=== PATIENT | male | born 1970 | race Caucasian/White ===

== ENCOUNTER 2023-11-04 11:24 | Inpatient (IN) ==
[2023-11-04 13:02] LABS: ABS Eosinophils 0.1 10^3/uL (0.0-0.5); ABS Lymphocytes 0.5 10^3/uL (1.0-4.8); ABS Monocytes 0.4 10^3/uL (0.0-1.1); ABS Neutrophils 5.1 10^3/uL (1.5-7.6); ABS Nucleated RBC 0.01 10^3/ul; Eosinophil % 1.4 %; Hematocrit 39.2 % (38-53); Hemoglobin 12.3 g/dL (13.2-16.3); Lymphocyte % 8.9 %; Mean Corpuscular Hemoglobin 30.3 pg (27-33); Mean Corpuscular Hgb Conc 31.4 g/dL (31-36); Mean Corpuscular Volume 96.6 fL (80-97); Nucleated Red Blood Cells % 0.1 %/100WBC (0.0-0.8); Platelet Count 202 10^3/uL (150-450); Red Blood Count 4.06 10^6/uL (4.06-5.63); Red Cell Distribution Width 17.3 % (12-17); White Blood Count 6.1 10^3/uL (3.6-10.2)
[2023-11-04 13:33] LABS: Albumin 2.9 g/dL (3.2-5.2); Albumin/Globulin Ratio 0.7 (1-3); Calcium 7.4 mg/dL (8.6-10.3); Creatinine, Serum 5.13 mg/dL (0.67-1.17); Globulin 4.4 g/dL (2-4); Magnesium 2.1 mg/dL (1.9-2.7); Phosphorus 6.9 mg/dL (2.5-5.0); Total Bilirubin 1.1 mg/dL (0.2-1.0); Total Protein 7.3 g/dL (6.4-8.9); eGFR CKD-EPI 12.7 (>60)
[2023-11-04] MEDS ORDERED: Dextrose 50% Syringe 50 ml 25 GM/50 ML SYRINGE IV PUSH PRN (14:55)
[2023-11-04] MEDS ORDERED: NS 0.9% 1000 ml BAG 100 ML IV PRN (14:59)
[2023-11-04] MEDS ORDERED: NS 0.9% 1000 ml BAG 200 ML IV PRN (14:59)
[2023-11-04] MEDS ORDERED: Albumin Human 25% 25 GM/100 ML BTL IV PRN (14:59)
[2023-11-04 17:05] LABS: Hepatitis B Surface Antigen Nonreactive (Nonreactive)
[2023-11-04] MEDS: Heparin 1,000 UNIT/ML 10 ml (10,000 UNITS) CATHLAB/DIALYSIS DIALYSIS PRN (17:20)
[2023-11-04 17:23] LABS: Hepatitis B Surface Ab Immune (Immune)
[2023-11-04] MEDS: Heparin 5000 UNITS/ML 1 mL VIAL SUBCUT SCH (23:33)
[2023-11-05 06:27] LABS: Calcium 6.9 mg/dL (8.6-10.3); Creatinine, Serum 4.02 mg/dL (0.67-1.17); Potassium 4.1 mmol/L (3.5-5.0); eGFR CKD-EPI 16.9 (>60)
[2023-11-07] MEDS: Sulfur Hexaflouride MICROSPHR 25 MG VIAL IV ONE (02:15)
[2023-11-07] MEDS ORDERED: NS 0.9% 1000 ml BAG 100 ML IV PRN (02:26)
[2023-11-07] MEDS ORDERED: NS 0.9% 1000 ml BAG 200 ML IV PRN (02:26)
[2023-11-07] MEDS ORDERED: Albumin Human 25% 25 GM/100 ML BTL IV PRN (02:26)
[2023-11-07 07:55] LABS: Calcium 7.5 mg/dL (8.6-10.3); Creatinine, Serum 4.99 mg/dL (0.67-1.17); Potassium 6.1 mmol/L (3.5-5.0); eGFR CKD-EPI 13.1 (>60)
[2023-11-07] MEDS: Heparin 1,000 UNIT/ML 10 ml (10,000 UNITS) CATHLAB/DIALYSIS DIALYSIS PRN (08:05)
[2023-11-07 15:54] LABS: INR 1.41 (0.83-1.13)
[2023-11-08 16:20] LABS: Calcium 7.8 mg/dL (8.6-10.3); Creatinine, Serum 4.16 mg/dL (0.67-1.17); Potassium 4.8 mmol/L (3.5-5.0); eGFR CKD-EPI 16.3 (>60)
[2023-11-08] MEDS: ceFAZolin 1 GM ADVAN 1 GM ADDV.VIAL IVPB ONE (19:41)
[2023-11-08] MEDS: fentaNYL 250 mcg/5 ml 50 MCG/ML 5 ml VIAL (250 MCG) ONE (19:41)
[2023-11-09 06:24] LABS: Calcium 7.7 mg/dL (8.6-10.3); Creatinine, Serum 4.44 mg/dL (0.67-1.17); Potassium 5.5 mmol/L (3.5-5.0)
[2023-11-09] MEDS: Heparin 1,000 UNIT/ML 10 ml (10,000 UNITS) CATHLAB/DIALYSIS DIALYSIS PRN (09:04)
[2023-11-09 13:50] VITALS: BP 126/85
== END 2023-11-09 14:30 | disposition home or self-care (01) | DRG 291 ==
LOC: ED 11:24 → SUATTDRO 14:34 → EDHOLD 14:34 → MED 15:43
PROVIDERS: ADMIT Student in an Organized Health Care Education/Training Program; ATTEND Internal Medicine

== ENCOUNTER 2023-11-25 08:21 | Inpatient (IN) ==
[2023-11-25 09:07] LABS: ABS Eosinophils 0.1 10^3/uL (0.0-0.5); ABS Lymphocytes 0.7 10^3/uL (1.0-4.8); ABS Monocytes 0.6 10^3/uL (0.0-1.1); ABS Nucleated RBC 0.01 10^3/ul; Eosinophil % 1.1 %; Hematocrit 39.3 % (38-53); Hemoglobin 12.6 g/dL (13.2-16.3); Lymphocyte % 10.9 %; Mean Corpuscular Hgb Conc 32.1 g/dL (31-36); Mean Corpuscular Volume 96.5 fL (80-97); Mean Platelet Volume 8.6 fL (7.5-11.2); Nucleated Red Blood Cells % 0.1 %/100WBC (0.0-0.8); Platelet Count 273 10^3/uL (150-450); Red Blood Count 4.07 10^6/uL (4.06-5.63); Red Cell Distribution Width 17.1 % (12-17); White Blood Count 6.4 10^3/uL (3.6-10.2)
[2023-11-25] MEDS: Dextrose 50% Syringe 50 ml 25 GM/50 ML SYRINGE IV PUSH ONE (09:07)
[2023-11-25 09:39] LABS: Albumin 2.7 g/dL (3.2-5.2); Albumin/Globulin Ratio 0.6 (1-3); C Reactive Protein 96.75 mg/L (<8.01); Calcium 7.9 mg/dL (8.6-10.3); Creatinine, Serum 2.67 mg/dL (0.67-1.17); Globulin 4.3 g/dL (2-4); Potassium 4.5 mmol/L (3.5-5.0); Total Bilirubin 1.2 mg/dL (0.2-1.0); eGFR CKD-EPI 27.7 (>60)
[2023-11-25] MEDS: Cefepime 1 GM in Dextrose 1 GM/50 ML BAG IV ONE (13:21)
[2023-11-25] MEDS: Iodixanol (CONTRAST) 320 MG/ML 100 ML SDV IV ONE (14:15)
[2023-11-25] MEDS: Vancomycin 1,250 MG in NS 0.9% 250 ml 250 ML IVPB ONE (14:37)
[2023-11-25 18:06] LABS: PCO2 Arterial 40 mmHg (35-45); PO2 Arterial 79 mmHg (80-100)
[2023-11-25] MEDS ORDERED: Albumin Human 25% 25 GM/100 ML BTL IV PRN (21:12)
[2023-11-25] MEDS ORDERED: NS 0.9% 1000 ml BAG 200 ML IV PRN (21:12)
[2023-11-25] MEDS ORDERED: NS 0.9% 1000 ml BAG 100 ML IV PRN (21:12)
[2023-11-25] MEDS ORDERED: SODIUM THIOSULFATE 12.5 GM IV SCH ×2 (22:00)
[2023-11-25] MEDS: Heparin 5000 UNITS/ML 1 mL VIAL SUBCUT SCH (22:32)
[2023-11-25 23:09] LABS: Hepatitis B Surface Antigen Nonreactive (Nonreactive)
[2023-11-26] MEDS: HYDROmorphone 0.5 MG/0.5 ML SYRINGE IV SLOW PU ONE (05:38)
[2023-11-26] MEDS: Heparin 1,000 UNIT/ML 10 ml (10,000 UNITS) CATHLAB/DIALYSIS DIALYSIS PRN (08:01)
[2023-11-26] MEDS: Neomycin/Polym/Bacit TOP OINT 15 GM TOPICAL SCH (09:59)
[2023-11-26] MEDS ORDERED: SODIUM THIOSULFATE 12.5 GM IV SCH (11:00)
[2023-11-26] MEDS: SODIUM THIOSULFATE IV SCH (11:04)
[2023-11-26] MEDS: Aspirin EC 81 mg TAB.EC (enteric coated) PO SCH (13:19)
[2023-11-26] MEDS: Cefepime 1 GM in Dextrose 1 GM/50 ML BAG IV SCH (13:24)
[2023-11-27 01:25] LABS: Hemoglobin 11.2 g/dL (13.2-16.3); Mean Corpuscular Hgb Conc 32.1 g/dL (31-36); Mean Corpuscular Volume 96.5 fL (80-97); Mean Platelet Volume 8.8 fL (7.5-11.2); Platelet Count 241 10^3/uL (150-450); Red Blood Count 3.63 10^6/uL (4.06-5.63); Red Cell Distribution Width 17.5 % (12-17); White Blood Count 6.8 10^3/uL (3.6-10.2)
[2023-11-27 01:48] LABS: Calcium 7.9 mg/dL (8.6-10.3); Creatinine, Serum 2.29 mg/dL (0.67-1.17); eGFR CKD-EPI 33.3 (>60)
[2023-11-28 06:10] LABS: Hematocrit 31.3 % (38-53); Hemoglobin 10.1 g/dL (13.2-16.3); Mean Corpuscular Hemoglobin 31.4 pg (27-33); Mean Corpuscular Hgb Conc 32.4 g/dL (31-36); Mean Corpuscular Volume 97.2 fL (80-97); Mean Platelet Volume 8.9 fL (7.5-11.2); Platelet Count 206 10^3/uL (150-450); Red Blood Count 3.22 10^6/uL (4.06-5.63); Red Cell Distribution Width 17.2 % (12-17); White Blood Count 6.7 10^3/uL (3.6-10.2)
[2023-11-28 06:29] LABS: Calcium 7.7 mg/dL (8.6-10.3); Creatinine, Serum 3.53 mg/dL (0.67-1.17); Potassium 4.7 mmol/L (3.5-5.0); eGFR CKD-EPI 19.8 (>60)
[2023-11-28] MEDS ORDERED: Tetan/Diph/Pertus SYR(Tdap) 0.5 ML SYR(BOOSTRIX) use SYR contains LATEX IM ONE (08:52)
[2023-11-28] MEDS ORDERED: Naloxone 0.4 mg VIAL 0.4 mg/ml 1 ml VIAL IV PUSH PRN (11:39)
[2023-11-28] MEDS ORDERED: Flumazenil 0.5 mg/5 ml 0.1 MG/ML 5 ml VIAL IV PRN (11:39)
[2023-11-28] MEDS ORDERED: Midazolam 5 mg/5 ml VIAL 1 mg/ml 5 ml VIAL (5 mg) ONE ×2 (12:29→12:51)
[2023-11-28] MEDS ORDERED: fentaNYL 100 mcg/2 ml 50 MCG/ML VIAL ONE (12:29)
[2023-11-28] MEDS ORDERED: fentaNYL 250 mcg/5 ml 50 MCG/ML 5 ml VIAL (250 MCG) ONE (12:51)
[2023-11-28] MEDS ORDERED: Iodixanol 320 (CONTRAST) 100 ML SDV ONE (13:01)
[2023-11-28] MEDS ORDERED: Heparin 1,000 UNIT/ML 10 ml (10,000 UNITS) CATHLAB/DIALYSIS ONE (14:06)
[2023-11-28] MEDS ORDERED: nitroGLYCERIN DRIP 25,000 MCG/250 ML BTL ONE (14:22)
[2023-11-28] MEDS ORDERED: Heparin 2 UNITS/ML IVPREMIX 1,000 UNIT/500 ML BAG IV ONE (14:54)
[2023-11-28] MEDS: Midazolam 10 mg/10 ml VIAL 1 mg/ml 10 ml VIAL (10 mg) IV SLOW PU ONE (17:34)
[2023-11-28] MEDS: fentaNYL 100 mcg/2 ml 50 MCG/ML VIAL IV SLOW PU ONE (17:34)
[2023-11-29 06:18] LABS: Hematocrit 32.2 % (38-53); Hemoglobin 10.5 g/dL (13.2-16.3); Mean Corpuscular Hemoglobin 31.7 pg (27-33); Mean Corpuscular Hgb Conc 32.7 g/dL (31-36); Platelet Count 206 10^3/uL (150-450); Red Blood Count 3.32 10^6/uL (4.06-5.63); Red Cell Distribution Width 17.5 % (12-17); White Blood Count 5.9 10^3/uL (3.6-10.2)
[2023-11-29 06:56] LABS: Calcium 7.3 mg/dL (8.6-10.3); Creatinine, Serum 4.13 mg/dL (0.67-1.17); Potassium 4.9 mmol/L (3.5-5.0); eGFR CKD-EPI 16.4 (>60)
[2023-11-29] MEDS ORDERED: Pramoxine/Zinc Oxide CREAM 30 GM PR PRN (08:29)
[2023-11-29] MEDS: Calamine/Pramoxine LOTION 8%/1% 180 ML TOPICAL SCH (12:12)
[2023-11-29] MEDS: Tetan/Diph/Pertus SYR(Tdap) 0.5 ML SYR(BOOSTRIX) use SYR contains LATEX IM ONE (13:43)
[2023-11-29] MEDS ORDERED: Magnesium Hydroxide LIQ 30 ML UDC PO PRN (15:51)
[2023-11-29] MEDS ORDERED: Senna TAB 8.6 mg TAB PO PRN (15:51)
[2023-11-29] MEDS ORDERED: Polyethylene Glycol 3350 17 GM PACKET PO PRN (15:51)
[2023-11-29] MEDS: Cefepime 1 GM in Dextrose 1 GM/50 ML BAG IV SCH (16:53)
[2023-11-30 05:21] LABS: Hematocrit 34.7 % (38-53); Hemoglobin 11.1 g/dL (13.2-16.3); Mean Corpuscular Hgb Conc 32.1 g/dL (31-36); Mean Corpuscular Volume 96.5 fL (80-97); Mean Platelet Volume 9.1 fL (7.5-11.2); Platelet Count 237 10^3/uL (150-450); Red Blood Count 3.59 10^6/uL (4.06-5.63); Red Cell Distribution Width 17.3 % (12-17); White Blood Count 5.4 10^3/uL (3.6-10.2)
[2023-11-30 05:38] LABS: Calcium 7.1 mg/dL (8.6-10.3); Creatinine, Serum 2.92 mg/dL (0.67-1.17); Potassium 4.3 mmol/L (3.5-5.0); eGFR CKD-EPI 24.9 (>60)
[2023-11-30 10:00] VITALS: BP 112/73
[2023-11-30] MEDS: TACROLIMUS 0.03% TOPICAL SCH (12:03)
== END 2023-11-30 14:29 | disposition home health service (06) | DRG 252 ==
LOC: ED 08:21 → EDHOLD 08:21 → MEDTELE 20:31 → SUATTDRO 11-27 15:04
PROVIDERS: ADMIT Internal Medicine; ATTEND Internal Medicine

== ENCOUNTER 2023-12-28 20:50 | Inpatient (IN) ==
[2023-12-28 21:15] LABS: PCO2 Arterial 25 mmHg (35-45); PO2 Arterial 296 mmHg (80-100)
[2023-12-28 21:15] LABS: ABS Lymphocytes 0.1 10^3/uL (1.0-4.8); ABS Nucleated RBC 0.01 10^3/ul; Eosinophil % 0.6 %; Hematocrit 33.4 % (38-53); Hemoglobin 10.9 g/dL (13.2-16.3); Lymphocyte % 2.1 %; Mean Corpuscular Hemoglobin 31.1 pg (27-33); Mean Corpuscular Hgb Conc 32.6 g/dL (31-36); Mean Corpuscular Volume 95.2 fL (80-97); Mean Platelet Volume 8.6 fL (7.5-11.2); Nucleated Red Blood Cells % 0.1 %/100WBC (0.0-0.8); Platelet Count 204 10^3/uL (150-450); Red Cell Distribution Width 16.8 % (12-17); White Blood Count 5.2 10^3/uL (3.6-10.2)
[2023-12-28] MEDS: Cefepime 1 GM in Dextrose 1 GM/50 ML BAG IV ONE (21:16)
[2023-12-28 21:23] LABS: Activated Partial Thrombo Time 34.9 seconds (26.0-38.0); INR 1.23 (0.85-1.14)
[2023-12-28 21:53] LABS: Albumin 2.9 g/dL (3.2-5.2); Albumin/Globulin Ratio 0.7 (1-3); C Reactive Protein 105.76 mg/L (<8.01); Calcium 7.4 mg/dL (8.6-10.3); Creatinine, Serum 3.53 mg/dL (0.67-1.17); Globulin 4.2 g/dL (2-4); Potassium 4.8 mmol/L (3.5-5.0); Total Bilirubin 0.8 mg/dL (0.2-1.0); Total Protein 7.1 g/dL (6.4-8.9); eGFR CKD-EPI 19.8 (>60)
[2023-12-28 22:58] LABS: High Sensitivity Troponin 1 Hr 68 pg/mL (<20)
[2023-12-28] MEDS: Vancomycin 1,500 MG in NS 0.9% 250 ml 250 ML IVPB ONE (23:28)
[2023-12-28] MEDS: Vancomycin 1,000 MG - ED ONCE IVPB ONE (23:40)
[2023-12-29] MEDS ORDERED: Vancomycin per Pharmacy 1 EA NOTE FOLLOW UP SCH (02:00)
[2023-12-29] MEDS ORDERED: Dextrose 50% Syringe 50 ml 25 GM/50 ML SYRINGE IV PUSH PRN (04:09)
[2023-12-29 05:32] LABS: ABS Lymphocytes 0.3 10^3/uL (1.0-4.8); ABS Monocytes 0.3 10^3/uL (0.0-1.1); ABS Neutrophils 9.3 10^3/uL (1.5-7.6); Eosinophil % 0.1 %; Hematocrit 29.5 % (38-53); Hemoglobin 9.8 g/dL (13.2-16.3); Lymphocyte % 3.3 %; Mean Corpuscular Hemoglobin 31.9 pg (27-33); Mean Corpuscular Hgb Conc 33.4 g/dL (31-36); Mean Corpuscular Volume 95.6 fL (80-97); Mean Platelet Volume 8.8 fL (7.5-11.2); Platelet Count 180 10^3/uL (150-450); Red Blood Count 3.08 10^6/uL (4.06-5.63); Red Cell Distribution Width 16.4 % (12-17)
[2023-12-29 06:18] LABS: Albumin 2.7 g/dL (3.2-5.2); Albumin/Globulin Ratio 0.7 (1-3); Calcium 7.4 mg/dL (8.6-10.3); Creatinine, Serum 3.79 mg/dL (0.67-1.17); Globulin 3.9 g/dL (2-4); Magnesium 2.2 mg/dL (1.9-2.7); Potassium 4.2 mmol/L (3.5-5.0); Total Bilirubin 0.6 mg/dL (0.2-1.0); Total Protein 6.6 g/dL (6.4-8.9); eGFR CKD-EPI 18.2 (>60)
[2023-12-29] MEDS: Heparin 5000 UNITS/ML 1 mL VIAL SUBCUT SCH (08:55)
[2023-12-29] MEDS: Aspirin EC 81 mg TAB.EC (enteric coated) PO SCH (08:56)
[2023-12-29] MEDS: Vancomycin Random Level NOTE FOLLOW UP ONE (09:06)
[2023-12-29] MEDS ORDERED: Albumin Human 25% 25 GM/100 ML BTL IV PRN (11:07)
[2023-12-29] MEDS ORDERED: NS 0.9% 1000 ml BAG 200 ML IV PRN (11:07)
[2023-12-29] MEDS ORDERED: NS 0.9% 1000 ml BAG 100 ML IV PRN (11:07)
[2023-12-29 13:43] LABS: Hepatitis B Surface Antigen Nonreactive (Nonreactive)
[2023-12-29 14:01] LABS: Hepatitis B Surface Ab Immune (Immune)
[2023-12-29] MEDS: Heparin 1,000 UNIT/ML 10 ml (10,000 UNITS) CATHLAB/DIALYSIS DIALYSIS PRN (14:34)
[2023-12-29] MEDS ORDERED: SODIUM THIOSULFATE 12.5 GM IV SCH (16:00)
[2023-12-29] MEDS: Sodium Thiosulfate 25 GM in 200 ML IV SCH (17:34)
[2023-12-29] MEDS: CEFEPIME 2 GM in Dextrose 50 mL IV SCH (18:28)
[2023-12-29] MEDS: cefTRIAXone 1 gm/50 mL D5W 1 GM/50 ML BAG IV SCH (18:45)
[2023-12-29] MEDS ORDERED: Vancomycin 500 MG in NS 0.9% 250 ML IVPB ONE (20:00)
[2023-12-29] MEDS: Acetaminophen IV 1 GM/100ML 1,000 MG/100 ML BAG IV ONE (22:08)
[2023-12-29 22:25] LABS: ABS Lymphocytes 0.1 10^3/uL (1.0-4.8); ABS Monocytes 0.1 10^3/uL (0.0-1.1); ABS Neutrophils 8.8 10^3/uL (1.5-7.6); Eosinophil % 0.3 %; Hematocrit 29.2 % (38-53); Hemoglobin 9.8 g/dL (13.2-16.3); Lymphocyte % 1.5 %; Mean Corpuscular Hemoglobin 31.9 pg (27-33); Mean Corpuscular Hgb Conc 33.6 g/dL (31-36); Mean Corpuscular Volume 94.9 fL (80-97); Mean Platelet Volume 8.8 fL (7.5-11.2); Platelet Count 161 10^3/uL (150-450); Red Blood Count 3.07 10^6/uL (4.06-5.63); Red Cell Distribution Width 16.4 % (12-17); White Blood Count 9.1 10^3/uL (3.6-10.2)
[2023-12-29 22:36] LABS: Albumin 2.7 g/dL (3.2-5.2); Albumin/Globulin Ratio 0.7 (1-3); Calcium 7.6 mg/dL (8.6-10.3); Creatinine, Serum 2.47 mg/dL (0.67-1.17); Potassium 4.1 mmol/L (3.5-5.0); Total Bilirubin 0.6 mg/dL (0.2-1.0); Total Protein 6.7 g/dL (6.4-8.9); eGFR CKD-EPI 30.4 (>60)
[2023-12-30 03:53] LABS: Albumin 2.6 g/dL (3.2-5.2); Albumin/Globulin Ratio 0.7 (1-3); Calcium 7.9 mg/dL (8.6-10.3); Creatinine, Serum 2.65 mg/dL (0.67-1.17); Globulin 3.9 g/dL (2-4); Magnesium 1.9 mg/dL (1.9-2.7); Potassium 4.4 mmol/L (3.5-5.0); Total Bilirubin 0.5 mg/dL (0.2-1.0); Total Protein 6.5 g/dL (6.4-8.9); eGFR CKD-EPI 27.9 (>60)
[2023-12-30 04:06] LABS: ABS Lymphocytes 0.4 10^3/uL (1.0-4.8); ABS Monocytes 0.4 10^3/uL (0.0-1.1); ABS Neutrophils 10.1 10^3/uL (1.5-7.6); ABS Nucleated RBC 0.01 10^3/ul; Eosinophil % 0.2 %; Hematocrit 27.9 % (38-53); Hemoglobin 9.3 g/dL (13.2-16.3); Lymphocyte % 4.1 %; Mean Corpuscular Hemoglobin 31.8 pg (27-33); Mean Corpuscular Hgb Conc 33.2 g/dL (31-36); Mean Corpuscular Volume 95.8 fL (80-97); Mean Platelet Volume 9.3 fL (7.5-11.2); Platelet Count 156 10^3/uL (150-450); Red Blood Count 2.91 10^6/uL (4.06-5.63); Red Cell Distribution Width 16.6 % (12-17)
[2023-12-30] MEDS ORDERED: Vancomycin Random Level NOTE FOLLOW UP ONE (06:00)
[2023-12-30] MEDS: Polyethylene Glycol 3350 17 GM PACKET PO SCH (10:30)
[2023-12-30] MEDS: Lidocaine PATCH 5% PATCH TRANSDERM SCH (10:31)
[2023-12-30] MEDS: Magnesium Hydroxide LIQ 30 ML UDC PO PRN (11:29)
[2023-12-30] MEDS: cefTRIAXone 2 gm/50 mL D5W 2 GM/50 ML BAG IV SCH (17:17)
[2023-12-30] MEDS: Senna TAB 8.6 mg TAB PO SCH (21:58)
[2023-12-31 07:09] LABS: ABS Eosinophils 0.3 10^3/uL (0.0-0.5); ABS Lymphocytes 0.9 10^3/uL (1.0-4.8); ABS Monocytes 0.6 10^3/uL (0.0-1.1); Eosinophil % 4.5 %; Hematocrit 27.2 % (38-53); Hemoglobin 9.1 g/dL (13.2-16.3); Lymphocyte % 12.9 %; Mean Corpuscular Hemoglobin 32.1 pg (27-33); Mean Corpuscular Hgb Conc 33.3 g/dL (31-36); Mean Corpuscular Volume 96.2 fL (80-97); Mean Platelet Volume 9.6 fL (7.5-11.2); Nucleated Red Blood Cells % 0.1 %/100WBC (0.0-0.8); Platelet Count 151 10^3/uL (150-450); Red Blood Count 2.82 10^6/uL (4.06-5.63); Red Cell Distribution Width 16.6 % (12-17); White Blood Count 6.7 10^3/uL (3.6-10.2)
[2023-12-31 07:32] LABS: Albumin 2.5 g/dL (3.2-5.2); Albumin/Globulin Ratio 0.7 (1-3); Calcium 7.7 mg/dL (8.6-10.3); Creatinine, Serum 3.43 mg/dL (0.67-1.17); Globulin 3.7 g/dL (2-4); Magnesium 2.3 mg/dL (1.9-2.7); Potassium 4.5 mmol/L (3.5-5.0); Total Bilirubin 0.5 mg/dL (0.2-1.0); Total Protein 6.2 g/dL (6.4-8.9); eGFR CKD-EPI 20.5 (>60)
[2023-12-31] MEDS: Influenza Vaccine *TRI* 2024-25* 0.5 ML SYRINGE IM ONE (08:29)
[2023-12-31] MEDS: Ondansetron 4 mg VIAL 2 MG/ML 2 ml VIAL IV PRN (22:46)
[2024-01-01 08:44] LABS: ABS Eosinophils 0.2 10^3/uL (0.0-0.5); ABS Lymphocytes 0.2 10^3/uL (1.0-4.8); ABS Monocytes 0.1 10^3/uL (0.0-1.1); ABS Neutrophils 8.5 10^3/uL (1.5-7.6); ABS Nucleated RBC 0.01 10^3/ul; Eosinophil % 1.8 %; Hematocrit 29.3 % (38-53); Hemoglobin 9.8 g/dL (13.2-16.3); Lymphocyte % 2.3 %; Mean Corpuscular Hemoglobin 32.1 pg (27-33); Mean Corpuscular Hgb Conc 33.5 g/dL (31-36); Mean Corpuscular Volume 95.7 fL (80-97); Mean Platelet Volume 9.5 fL (7.5-11.2); Nucleated Red Blood Cells % 0.1 %/100WBC (0.0-0.8); Platelet Count 161 10^3/uL (150-450); Red Blood Count 3.06 10^6/uL (4.06-5.63); Red Cell Distribution Width 16.9 % (12-17)
[2024-01-01 09:40] LABS: Albumin 2.6 g/dL (3.2-5.2); Albumin/Globulin Ratio 0.7 (1-3); Calcium 8.6 mg/dL (8.6-10.3); Creatinine, Serum 4.15 mg/dL (0.67-1.17); Globulin 3.9 g/dL (2-4); Magnesium 2.6 mg/dL (1.9-2.7); Potassium 5.1 mmol/L (3.5-5.0); Total Bilirubin 0.5 mg/dL (0.2-1.0); Total Protein 6.5 g/dL (6.4-8.9); eGFR CKD-EPI 16.3 (>60)
[2024-01-02] MEDS: Morphine 2 MG/ML SYRINGE IV ONE (00:39)
[2024-01-03 05:26] LABS: ABS Eosinophils 0.2 10^3/uL (0.0-0.5); ABS Monocytes 0.5 10^3/uL (0.0-1.1); ABS Nucleated RBC 0.01 10^3/ul; Hematocrit 28.3 % (38-53); Hemoglobin 9.3 g/dL (13.2-16.3); Lymphocyte % 12.8 %; Mean Corpuscular Hemoglobin 31.4 pg (27-33); Mean Corpuscular Hgb Conc 32.9 g/dL (31-36); Mean Corpuscular Volume 95.6 fL (80-97); Mean Platelet Volume 9.5 fL (7.5-11.2); Nucleated Red Blood Cells % 0.2 %/100WBC (0.0-0.8); Platelet Count 174 10^3/uL (150-450); Red Blood Count 2.96 10^6/uL (4.06-5.63); Red Cell Distribution Width 16.8 % (12-17); White Blood Count 7.7 10^3/uL (3.6-10.2)
[2024-01-03 05:54] LABS: Calcium 9.2 mg/dL (8.6-10.3); Creatinine, Serum 3.54 mg/dL (0.67-1.17); Potassium 4.6 mmol/L (3.5-5.0); eGFR CKD-EPI 19.7 (>60)
[2024-01-04 13:41] VITALS: BP 117/74
[2024-01-04] MEDS: cefTRIAXone 2 gm/50 mL D5W 2 GM/50 ML BAG IV SCH (14:16)
== END 2024-01-04 16:15 | disposition home or self-care (01) | DRG 871 ==
LOC: ED 20:50 → EDHOLD 23:30 → SUATTDRO 12-29 01:23 → MED 12-29 13:01
PROVIDERS: ADMIT Internal Medicine; ATTEND Internal Medicine

== ENCOUNTER 2024-01-14 15:36 | Inpatient (IN) ==
[2024-01-14 18:12] LABS: ABS Eosinophils 0.1 10^3/uL (0.0-0.5); ABS Lymphocytes 0.6 10^3/uL (1.0-4.8); ABS Monocytes 0.5 10^3/uL (0.0-1.1); ABS Neutrophils 5.2 10^3/uL (1.5-7.6); Hematocrit 31.9 % (38-53); Hemoglobin 10.3 g/dL (13.2-16.3); Lymphocyte % 9.4 %; Mean Corpuscular Hemoglobin 31.4 pg (27-33); Mean Corpuscular Hgb Conc 32.1 g/dL (31-36); Mean Corpuscular Volume 97.6 fL (80-97); Mean Platelet Volume 8.4 fL (7.5-11.2); Platelet Count 276 10^3/uL (150-450); Red Blood Count 3.27 10^6/uL (4.06-5.63); Red Cell Distribution Width 16.5 % (12-17); White Blood Count 6.5 10^3/uL (3.6-10.2)
[2024-01-14 19:00] LABS: Albumin 2.6 g/dL (3.2-5.2); Albumin/Globulin Ratio 0.6 (1-3); Calcium 7.3 mg/dL (8.6-10.3); Creatinine, Serum 1.96 mg/dL (0.67-1.17); Globulin 4.3 g/dL (2-4); Potassium 3.3 mmol/L (3.5-5.0); Total Bilirubin 0.8 mg/dL (0.2-1.0); Total Protein 6.9 g/dL (6.4-8.9); eGFR CKD-EPI 40.1 (>60)
[2024-01-14 19:01] LABS: C Reactive Protein 114.24 mg/L (<8.01)
[2024-01-14] MEDS: Piperacillin/Tazobac 3.375 BAG 3.375 GM/100 ML BAG IV ONE (19:58)
[2024-01-14] MEDS ORDERED: Vancomycin 1,000 MG BAG/ADDV ONE (20:31)
[2024-01-14] MEDS: Vancomycin 1,000 MG in NS 0.9% 250 ml 250 ML IVPB ONE (20:32)
[2024-01-14] MEDS ORDERED: Diphenoxylat/Atrop 2.5-0.025mg TAB PO PRN (22:08)
[2024-01-14] MEDS ORDERED: Zosyn per Pharmacy NOTE FOLLOW UP SCH (23:00)
[2024-01-14] MEDS ORDERED: Vancomycin per Pharmacy 1 EA NOTE FOLLOW UP SCH (23:00)
[2024-01-14] MEDS: Heparin 5000 UNITS/ML 1 mL VIAL SUBCUT SCH (23:14)
[2024-01-14] MEDS: Lidocaine PATCH 5% PATCH TRANSDERM SCH (23:15)
[2024-01-14] MEDS: Senna TAB 8.6 mg TAB PO PRN (23:55)
[2024-01-15] MEDS: ZOSYN 3.375 GM Q12H per EXTENDED INFUSION IV SCH ×2 (00:18→12:38)
[2024-01-15] MEDS: Potassium Chlor 20 meq TAB.ER PO ONE (01:22)
[2024-01-15 08:43] LABS: ABS Basophils 0.1 10^3/uL (0.0-0.1); ABS Eosinophils 0.2 10^3/uL (0.0-0.5); ABS Lymphocytes 0.7 10^3/uL (1.0-4.8); ABS Monocytes 0.7 10^3/uL (0.0-1.1); ABS Neutrophils 5.9 10^3/uL (1.5-7.6); ABS Nucleated RBC 0.01 10^3/ul; Eosinophil % 2.1 %; Hematocrit 29.8 % (38-53); Hemoglobin 9.8 g/dL (13.2-16.3); Lymphocyte % 9.8 %; Mean Corpuscular Hemoglobin 31.6 pg (27-33); Mean Corpuscular Hgb Conc 32.8 g/dL (31-36); Mean Corpuscular Volume 96.5 fL (80-97); Mean Platelet Volume 8.7 fL (7.5-11.2); Nucleated Red Blood Cells % 0.1 %/100WBC (0.0-0.8); Platelet Count 270 10^3/uL (150-450); Red Blood Count 3.09 10^6/uL (4.06-5.63); Red Cell Distribution Width 16.3 % (12-17); White Blood Count 7.5 10^3/uL (3.6-10.2)
[2024-01-15 09:01] LABS: Creatinine, Serum 2.59 mg/dL (0.67-1.17); Potassium 3.8 mmol/L (3.5-5.0); eGFR CKD-EPI 28.7 (>60)
[2024-01-15] MEDS: Aspirin EC 81 mg TAB.EC (enteric coated) PO SCH (09:51)
[2024-01-15] MEDS ORDERED: Albumin Human 25% 25 GM/100 ML BTL IV PRN (15:31)
[2024-01-15] MEDS ORDERED: NS 0.9% 1000 ml BAG 100 ML IV PRN (15:31)
[2024-01-15] MEDS ORDERED: NS 0.9% 1000 ml BAG 200 ML IV PRN (15:31)
[2024-01-15 16:53] LABS: Hepatitis B Surface Ab Immune (Immune)
[2024-01-17 02:55] LABS: Hepatitis B Surface Antigen Nonreactive (Nonreactive)
[2024-01-17] MEDS: Heparin 1,000 UNIT/ML 10 ml (10,000 UNITS) CATHLAB/DIALYSIS DIALYSIS PRN (09:10)
[2024-01-17] MEDS: SODIUM THIOSULFATE IV SCH (11:10)
[2024-01-17] MEDS: NS 0.9% IV SCH (11:10)
[2024-01-17 13:16] VITALS: BP 114/74
[2024-01-17] MEDS ORDERED: Sodium Thiosulfate 25 GM in 200 ML IV SCH (14:00)
[2024-01-17] MEDS ORDERED: SODIUM THIOSULFATE 12.5 GM IV SCH (15:30)
== END 2024-01-17 14:50 | disposition home or self-care (01) | DRG 640 ==
LOC: EDHOLD 15:36 → ED 15:36 → MEDTELE 01-15 03:51
PROVIDERS: ADMIT Internal Medicine; ATTEND Internal Medicine

== ENCOUNTER 2024-01-28 16:15 | Observation (INO) ==
[2024-01-28 19:30] LABS: ABS Basophils 0.1 10^3/uL (0.0-0.1); ABS Eosinophils 0.2 10^3/uL (0.0-0.5); ABS Lymphocytes 0.6 10^3/uL (1.0-4.8); ABS Monocytes 0.5 10^3/uL (0.0-1.1); ABS Neutrophils 5.6 10^3/uL (1.5-7.6); ABS Nucleated RBC 0.01 10^3/ul; Eosinophil % 2.7 %; Hematocrit 31.9 % (38-53); Hemoglobin 10.2 g/dL (13.2-16.3); Lymphocyte % 8.5 %; Mean Corpuscular Hemoglobin 31.3 pg (27-33); Mean Corpuscular Hgb Conc 32.1 g/dL (31-36); Mean Corpuscular Volume 97.5 fL (80-97); Mean Platelet Volume 8.2 fL (7.5-11.2); Nucleated Red Blood Cells % 0.1 %/100WBC (0.0-0.8); Platelet Count 259 10^3/uL (150-450); Red Blood Count 3.27 10^6/uL (4.06-5.63); Red Cell Distribution Width 16.4 % (12-17)
[2024-01-28 19:45] LABS: Activated Partial Thrombo Time 38.1 seconds (26.0-38.0); INR 1.21 (0.85-1.14)
[2024-01-28 20:22] LABS: Albumin 2.8 g/dL (3.2-5.2); Albumin/Globulin Ratio 0.6 (1-3); Calcium 7.3 mg/dL (8.6-10.3); Creatinine, Serum 2.03 mg/dL (0.67-1.17); Globulin 4.4 g/dL (2-4); HDL Cholesterol 42.5 mg/dL; Total Bilirubin 0.6 mg/dL (0.2-1.0); Total Protein 7.2 g/dL (6.4-8.9); eGFR CKD-EPI 38.2 (>60)
[2024-01-28 20:50] LABS: Direct Bilirubin 0.1 mg/dL (0.03-0.18); Indirect Bilirubin 0.5 mg/dL (0.3-1.0); Potassium 3.8 mmol/L (3.5-5.0)
[2024-01-28] MEDS: fentaNYL 100 mcg/2 ml 50 MCG/ML VIAL IV SLOW PU ONE (22:00)
[2024-01-28] MEDS: Morphine 4 MG/ML VIAL (1 ml) IV ONE (23:22)
[2024-01-29] MEDS ORDERED: Diphenoxylat/Atrop 2.5-0.025mg TAB PO PRN (03:21)
[2024-01-29] MEDS: Morphine 2 MG/ML SYRINGE IV PRN ×2 (04:24→12:18)
[2024-01-29] MEDS ORDERED: Magnesium Hydroxide LIQ 30 ML UDC PO PRN (08:30)
[2024-01-29] MEDS: fentaNYL 100 mcg/2 ml 50 MCG/ML VIAL IV SLOW PU ONE (08:37)
[2024-01-29] MEDS: Aspirin EC 81 mg TAB.EC (enteric coated) PO SCH (08:49)
[2024-01-29] MEDS: Heparin 5000 UNITS/ML 1 mL VIAL SUBCUT SCH (08:49)
[2024-01-29] MEDS: LIDOCAINE TOPICAL SCH (08:58)
[2024-01-29] MEDS: [UNRECOGNIZED DRUG - OTHER] TOPICAL SCH (08:58)
[2024-01-29] MEDS: Polyethylene Glycol 3350 17 GM PACKET PO SCH (09:05)
[2024-01-29] MEDS: Lidocaine PATCH 5% PATCH TRANSDERM SCH (12:44)
[2024-01-29] MEDS ORDERED: Albumin Human 25% 25 GM/100 ML BTL IV PRN (14:47)
[2024-01-29] MEDS ORDERED: Heparin 1,000 UNIT/ML 10 ml (10,000 UNITS) CATHLAB/DIALYSIS DIALYSIS PRN (14:47)
[2024-01-29] MEDS ORDERED: NS 0.9% 1000 ml BAG 200 ML IV PRN (14:47)
[2024-01-29] MEDS ORDERED: NS 0.9% 1000 ml BAG 100 ML IV PRN (14:47)
[2024-01-29] MEDS: fentaNYL 100 mcg/2 ml 50 MCG/ML VIAL IV SLOW PU PRN (17:23)
[2024-01-29 19:31] LABS: Hepatitis B Surface Antigen Nonreactive (Nonreactive)
[2024-01-29 19:49] LABS: Hepatitis B Surface Ab Immune (Immune)
[2024-01-30] MEDS: Ondansetron 4 mg VIAL 2 MG/ML 2 ml VIAL IV PRN ×2 (03:08→11:44)
[2024-01-30] MEDS: Iodixanol 320 (CONTRAST) 100 ML SDV IV ONE (08:30)
[2024-01-30 08:57] LABS: ABS Basophils 0.1 10^3/uL (0.0-0.1); ABS Lymphocytes 0.2 10^3/uL (1.0-4.8); ABS Monocytes 0.6 10^3/uL (0.0-1.1); ABS Neutrophils 12.9 10^3/uL (1.5-7.6); Eosinophil % 0.3 %; Hematocrit 31.9 % (38-53); Hemoglobin 10.1 g/dL (13.2-16.3); Lymphocyte % 1.5 %; Mean Corpuscular Hemoglobin 30.9 pg (27-33); Mean Corpuscular Hgb Conc 31.7 g/dL (31-36); Mean Corpuscular Volume 97.5 fL (80-97); Mean Platelet Volume 8.8 fL (7.5-11.2); Platelet Count 280 10^3/uL (150-450); Red Blood Count 3.27 10^6/uL (4.06-5.63); Red Cell Distribution Width 15.7 % (12-17); White Blood Count 13.8 10^3/uL (3.6-10.2)
[2024-01-30 16:24] VITALS: BP 95/64
== END 2024-01-30 16:51 | disposition short-term general hospital (02) ==
LOC: ED 16:15 → EDHOLD 16:15 → MEDTELE 01-29 16:30
PROVIDERS: ADMIT Internal Medicine; ATTEND Family Medicine